=== PATIENT | female | born 1975 | race Caucasian/White ===

== ENCOUNTER 2024-02-18 19:15 | Inpatient (IN) | payer BC, MEDICAID, SELFPAY ==
[2024-02-18 19:30] VITALS: BP 143/95; PULSE 88; RESP 16; TEMP 36.9; O2SAT 98
[2024-02-18 19:42] VITALS: BMI 21.4
[2024-02-18] MEDS: lamoTRIgine 100 MG TABLET 200 MG PO (22:15)
[2024-02-18] MEDS: Perphenazine 8 MG TABLET PO (22:15)
[2024-02-18 22:16] VITALS: BP 143/90; PULSE 98
[2024-02-18] MEDS: Propranolol HCL 10 MG TABLET PO (22:16)
--- NOTE | 2024-02-18 23:44 | PC.ADMIT ---
Teri Baptiste is a 48yo female, admitted to M3 unit from [facility] on a CV for treatment of bipolar, psychosis and paranoia. Her fiance called 911 for her due to Teri being decompensated and not sleeping at all for the pass 2-3 days. Per crisis assessment, Pt arrives in the ED at [facility] in a nearly catatonic state and primarily non-verbal. She keeps repeating 9 years and will not elaborate on it. She reports seeing spirits and non meds compliant. Upon admission to the unit , she immediately signed a 3 day notice form. Patient was calm, but a bit irritable during the admission process. She states I am tired and will continue tomorrow, I just need my meds so that I can sleep tonight . Affect is flat and mood is depressed. Pt denies SI/HI/AH/VH. Pt read and signed notice of rights for CV form. She did not signed any release of information forms and did not fill my contacts form. Skin check done and V/S was stable. Safety tools and treatment plans initiated but yet to be signed. She took her meds before going to her room.
[2024-02-19 07:59] VITALS: BP 128/82; PULSE 80; RESP 16; TEMP 37.1; O2SAT 97
[2024-02-19] MEDS: lamoTRIgine 100 MG TABLET 200 MG PO ×2 (08:26→20:38)
[2024-02-19 08:27] VITALS: BP 128/82; PULSE 80
[2024-02-19] MEDS: Propranolol HCL 10 MG TABLET PO ×2 (08:27→16:06)
[2024-02-19] MEDS: Perphenazine 8 MG TABLET PO ×2 (08:28→20:38)
--- NOTE | 2024-02-19 08:56 | P.HPPS_ITS ---
HPI Date of Service: 02/19/24 Chief Complaint: Bipolar disorder HPI Narrative: per [facility] psych note, pt was BIBA to their ED after her fiancee jeanine called 911 due to her being decompensated and not sleeping at all for the past 2-3 days. she reportedly arrived in a catatonic state and was largely non-verbal, only saying 9 years to various staff. jeanine reported to staff that pt was experiencing severe insomnia and hallucinations. he reported she has a bipolar disorder Dx and has not slept for several days and connected it to her having stopped using cannabis, which she uses for insomnia, in the days prior. he reported he believed she had been compliant with her medications. on interview with MD on unit 02/18, pt is far more engageable than as described when at [facility]. she is lucid and able to have productive, cogent conversation. she is somewhat hyperverbal and mildly irritable, but otherwise largely normal in mental status. she acknowledges her bipolar disorder diagnosis and asks for sleeping pill, feeling that her present regimen is fine and if only she could sleep a little bit she would fine. pt present regimen is trilafon and lamictal. she is educated re the 3 evidence-based mood stabilizers, but she rejects any changes to her current regimen. she reports having been on lithium for several years until about a year ago, believing it isn't a safe medication, yet is unable to provide any reasons for her belief. states she has also been on VPA but it made her manic and feel terrible, and she refuses to take it. she doesn't believe she has had tegretol before, but rejects it out of hand. MD informs pt that the reason she is not sleeping well is because she is not on a mood stabilizer, and that if she were her sleeping problem would be ameliorated. she refuses to change regimen, and asks for sleeping pill. benzos are discussed, pt has been on ativan before and it was too addictive and too hard to come off of that she won't try that again. lower potency neuroleptics are discussed but pt does not like the side effect profile and dismisses the option. sedating anti-depressants are discussed, but, due to her lack of proper mood stabilizer, cannot be prescribed for concern of their propensity to induce javier. sedating antihistamines are reviewed, but their limitations for nightly use due to habituation make them not ideal. MD circles back around to low-dose thorazine, which is discussed again in elaborate detail, and pt ultimately agrees to take 25 mg at HS with another 25 mg available PRN. legal status reviewed, that pt is on a 12b and will likely be discharged saturday, when the 12b matures. Past Psychiatric History: hosps: about 10 SA: denies SIB: denies HIB: denies outpt: gets meds from [facility], whom she sees remotely and is out of an agency in [place]. therapy with cj, who is in private practice and whom she also sees via telehealth. Medical Evaluation Reviewed: Hospitalist Mynor Pending [facility] Medical History No pertinent past medical history Family History: denies Social History: lives with in [place], in a home they own. 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 has 2 kids in their 20s. Substance History: nicotine - 1 ppd alcohol - denies cannabis - had been using daily the past 2.5 months until about 2 weeks ago. Trauma History: reports childhood trauma associated with her mother, declines to say more Diagnostics Vital Signs (24Hr): Vital Signs - 24 hr 02/18/24 19:30 02/18/24 22:16 02/19/24 07:59 Temperature 98.4 F 98.8 F Pulse Rate 88 98 80 Respiratory Rate 16 16 Blood Pressure 143/95 H 143/90 H 128/82 Pulse Oximetry 98 97 Oxygen Delivery Method Room Air Room Air 02/19/24 08:27 Temperature Pulse Rate 80 Respiratory Rate Blood Pressure 128/82 Pulse Oximetry Oxygen Delivery Method BMI result Body Mass Index 21.4 Meds/Allergies Meds Home Medications ?Medication ?Instructions ?Recorded ?Confirmed ?Type deutetrabenazine 9 mg tablet 9 mg PO BID 02/18/24 02/18/24 History (Austedo) lamotrigine 200 mg tablet 200 mg PO BID 02/18/24 02/18/24 History perphenazine 8 mg tablet 8 mg PO BID 02/18/24 02/18/24 History propranolol 10 mg tablet 10 mg PO TID 02/18/24 02/18/24 History trospium 60 mg capsule,extended 60 mg PO DAILY 02/18/24 02/18/24 History release 24 hr Allergies Allergies Allergy/AdvReac Type Severity Reaction Status Date / Time Penicillins Allergy Anaphylaxis Verified 02/18/24 22:09 sulfate ion Allergy Anaphylaxis Verified 02/18/24 22:25 Mental Status Exam Mental Status Exam Narrative: adequately dressed, somewhat disheveled. cooperative. no PMA/PMR. speech incr in rate and amount. decr latency. nml loudness and tone. thoughts linear and illogical. affect constricted, hyper-intense, min-labile. mood a little bass and tired. denies SI/SIBI/HI/AVH. Assessment & Plan Assessment & Plan (1) Bipolar I disorder with mixed features: Status: Acute Code(s): F31.9 - Bipolar disorder, unspecified Plan pt declines changing from her outpt regimen. she does agree to add thorazine at HS for help with sleep, however. re-stabilize on medications, discharge to outpt care once stable. 12b up saturday. Patient educated on: diagnosis and medication risk/benefits Reason for continued inpatient stay Substantial Risk for: inability to function and rapid decompensation Statement Statement: I have reviewed the history and physical and performed a pertinent examination on my patient. No changes have occurred unless specified. If the History and Physical was not performed prior to admission, the Hospitalist's service will be consulted for completing the admission p hysical. Time Spent With Patient Time: Total time managing care of this patient today __75__ minutes.
--- NOTE | 2024-02-19 09:08 | P.CONHOSP_ITS ---
History of Present Illness Data of Consult Service Date: 02/19/24 Requesting physician: Yuval Bach Primary Care Provider: Unknown Physician HPI Reason for consult: medical h&p 48 year old female with history of bipolar disorder and who is a current 1PPD smoker admitted to adult psychiatry with consult placed to hospitalist service for medical H&P. THe patient reports she has not slept in 3 days but otherwise has no complaints. While at [facility], cbc, bmp, were reviewed and were wnl. She denies etoh use or drug use. Review of Systems 2 Review of Systems: General: No fevers, malaise, unintentional weight loss HEENT: No blurred vision, diplopia. No sore throat, nasal congestion, rhinorrhea, sinus pain, ear pain Cardiovascular: No chest pain, palpitations, or leg edema Respiratory: No shortness of breath, wheezing, cough GI: No abdominal pain, nausea, vomiting, diarrhea, constipation, melena, hematochezia : No dysuria, hematuria, increased urinary frequency, decreased urinary output MSK: No myalgia, back pain Neuro: No headaches, weakness, paresthesias Skin: No rashes or lesions [facility] Medical History No pertinent past medical history Social History Household Members: Spouse Housing: House Do you presently have visiting nurse or other home services: No Patient Tobacco Use Status: Current everyday Tobacco user Tobacco use type: Cigarette Smoked in Last 30 Days: Yes e-Cigarette/Vaping Use: Never Used Patient Interested in Nicotine Replacement: Yes Patient Given Instructions on How to Stop Smoking: No Second Hand Smoke Exposure: No Use of substances other than those prescribed or required for medical reasons: No Currently Displaying Signs/Symptoms of Drug Intoxication Withdrawal: No Any prior treatment program specific to substance use: No Have you been hit, kicked, punched, or otherwise hurt by someone within the past year? If so, by whom?: No Do you feel safe in your current relationship?: Yes Is there a partner from a previous relationship who is making you feel unsafe now?: No Are you made to feel afraid or neglected: No Advance Directives: No Advance Directives Information Provided: No Do you have a plan to hurt others: No Plan Recently lost weight without trying: No Eating poorly because of decreased appetite: No Nutrition Risks: No Nutritional Risk Patient : No : No Poor oral hygiene: No Meds Allergies Allergy/AdvReac Type Severity Reaction Status Date / Time Penicillins Allergy Anaphylaxis Verified 02/18/24 22:09 sulfate ion Allergy Anaphylaxis Verified 02/18/24 22:25 Active Medications: Current Medications Acetaminophen (Acetaminophen 325 Mg Tablet) 650 mg PO Q6H PRN PRN Reason: Headache/Pain Mild Scale (1-3) Al Hydroxide/Mg Hydroxide (Magnesium Hydrox/Alum Hydrox 30 Ml Oral.Susp) 30 ml PO Q6H PRN PRN Reason: Heartburn/Nausea Hydroxyzine HCl (Hydroxyzine Hcl 25 Mg Tablet) 25 mg PO Q6H PRN PRN Reason: Anxiety Lamotrigine (Lamotrigine 100 Mg Tablet) 200 mg PO BID [facility] Last Admin: 02/19/24 08:26 Dose: 200 mg Magnesium Hydroxide (Milk Of Magnesia 30 Ml Oral.Susp) 30 ml PO DAILY PRN PRN Reason: Constipation Nicotine (Nicotine 21 Mg Patch.Td24) 21 mg TRANSDERMA DAILY [facility] Nicotine Polacrilex (Nicotine Polacrilex 2 Mg Gum) 4 mg BUCCAL Q1H PRN PRN Reason: Nicotine Cravings Pt Own (Austedo 9 Mg ()) 9 mg PO BID [facility] Last Admin: 02/19/24 08:26 Dose: 9 mg Non-Formulary Medication (Trospium) 60 mg PO DAILY [facility] Perphenazine (Perphenazine 8 Mg Tablet) 8 mg PO BID [facility] Last Admin: 02/19/24 08:28 Dose: 8 mg Propranolol HCl (Propranolol Hcl 10 Mg Tablet) 10 mg PO TID [facility]; Protocol Last Admin: 02/19/24 08:27 Dose: 10 mg Trazodone HCl (Trazodone Hcl 50 Mg Tablet) 50 mg PO BEDTIME MRX1 PRN PRN Reason: Insomnia Home Medications ?Medication ?Instructions ?Recorded ?Confirmed ?Last Taken ?Type deutetrabenazine 9 mg tablet 9 mg PO BID 02/18/24 02/18/24 Unknown History (Austedo) lamotrigine 200 mg tablet 200 mg PO BID 02/18/24 02/18/24 Unknown History perphenazine 8 mg tablet 8 mg PO BID 02/18/24 02/18/24 Unknown History propranolol 10 mg tablet 10 mg PO TID 02/18/24 02/18/24 Unknown History trospium 60 mg capsule,extended 60 mg PO DAILY 02/18/24 02/18/24 Unknown History release 24 hr Physical Exam Vital Signs and Narrative: Vital Signs: Last Vital Signs Temp 98.8 F 02/19/24 07:59 Pulse 80 02/19/24 08:27 Resp 16 02/19/24 07:59 BP 128/82 02/19/24 08:27 Pulse Ox 97 02/19/24 07:59 O2 Del Method Room Air 02/19/24 07:59 BMI result Body Mass Index 21.4 Assessment and Plan (1) Routine medical exam: Status: Acute Plan 48 year old female with history of bipolar disorder and who is a current 1PPD smoker admitted to adult psychiatry with consult placed to hospitalist service for medical H&P. #Mood disorder/psychosis -plan per psychiatry #Cigarette smoker -cessation advised -declined nrt Thank you for allowing me to participate in this consult. Signing off at this time. Please do not hesitate to call for further questions or for any acute medical issues
[2024-02-19 16:06] VITALS: BP 132/81; PULSE 84
[2024-02-19 20:30] VITALS: BP 134/81; PULSE 77; RESP 16; TEMP 37.3; O2SAT 98
[2024-02-19] MEDS: chlorproMAZINE HCl 25 MG TABLET PO (20:38)
[2024-02-19] MEDS: hydrOXYzine HCL 50 MG TABLET PO (20:39)
[2024-02-19 21:30] VITALS: TEMP 37.1
[2024-02-19 23:26] VITALS: TEMP 37.1
[2024-02-20 07:00] VITALS: BMI 21.3
[2024-02-20 07:38] VITALS: BP 126/59; PULSE 82; RESP 16; TEMP 36.7; O2SAT 96
[2024-02-20] MEDS: Perphenazine 8 MG TABLET PO ×2 (08:42→20:50)
[2024-02-20] MEDS: lamoTRIgine 100 MG TABLET 200 MG PO ×2 (08:43→20:48)
--- NOTE | 2024-02-20 11:13 | P.DS_ITS ---
DS: Providers Provider Date of Service: 02/20/24 Date of admission: 02/18/24 19:15 Primary care physician: Unknown Physician Consults: 02/18/24 20:27 Consult to Hospitalist Routine Comment: Consulting Provider: Hospitalist Reason For Exam: transfer pt DS: Diagnosis Discharge Diagnosis (1) Bipolar I disorder with mixed features: Status: Acute DS: Medications Discharge Medications Home Medications: Home Medications ?Medication ?Instructions ?Recorded ?Confirmed deutetrabenazine 9 mg tablet 9 mg PO BID 02/18/24 02/18/24 (Austedo) lamotrigine 200 mg tablet 200 mg PO BID 02/18/24 02/18/24 perphenazine 8 mg tablet 8 mg PO BID 02/18/24 02/18/24 propranolol 10 mg tablet 10 mg PO TID 02/18/24 02/18/24 trospium 60 mg capsule,extended 60 mg PO DAILY 02/18/24 02/18/24 release 24 hr Previous Rx's ?Medication ?Instructions ?Recorded chlorpromazine 25 mg tablet 25 mg PO BEDTIME PRN insomnia 30 02/20/24 days #30 tabs Mental Status Exam Mental Status Exam Narrative: adequately dressed and groomed. cooperative. no PMA/PMR. speech incr in rate, nml amount, latency. nml loudness and tone. thoughts linear and illogical. affect constricted, normo-intense, non-labile. mood good. denies SI/SI BI/HI/AVH. DS: Summary Hospital Course Hospital Course: per 02/18 admission note: per [facility] psych note, pt was BIBA to their ED after her fiancee jeanine called 911 due to her being decompensated and not sleeping at all for the past 2-3 days. she reportedly arrived in a catatonic state and was largely non-verbal, only saying 9 years to various staff. jeanine reported to staff that pt was experiencing severe insomnia and hallucinations. he reported she has a bipolar disorder Dx and has not slept for several days and connected it to her having stopped using cannabis, which she uses for insomnia, in the days prior. he reported he believed she had been compliant with her medications. on interview with on unit 02/18, pt is far more engageable than as described when at [facility]. she is lucid and able to have productive, cogent conversation. she is somewhat hyperverbal and mildly irritable, but otherwise largely normal in mental status. she acknowledges her bipolar disorder diagnosis and asks for sleeping pill, feeling that her present regimen is fine and if only she could sleep a little bit she would fine. pt present regimen is trilafon and lamictal. she is educated re the 3 evidence-based mood stabilizers, but she rejects any changes to her current regimen. she reports having been on lithium for several years until about a year ago, believing it isn't a safe medication, yet is unable to provide any reasons for her belief. states she has also been on VPA but it made her manic and feel terrible, and she refuses to take it. she doesn't believe she has had tegretol before, but rejects it out of hand. informs pt that the reason she is not sleeping well is because she is not on a mood stabilizer, and that if she were her sleeping problem would be ameliorated. she refuses to change regimen, and asks for sleeping pill. benzos are discussed, pt has been on ativan before and it was too addictive and too hard to come off of that she won't try that again. lower potency neuroleptics are discussed but pt does not like the side effect profile and dismisses the option. sedating anti-depressants are discussed, but, due to her lack of proper mood stabilizer, cannot be prescribed for concern of their propensity to induce javier. sedating antihistamines are reviewed, but their limitations for nightly use due to habituation make them not ideal. circles back around to low-dose thorazine, which is discussed again in elaborate detail, and pt ultimately agrees to take 25 mg at HS with another 25 mg available PRN. legal status reviewed, that pt is on a 12b and will likely be discharged saturday, when the 12b matures. Past Psychiatric History: hosps: about 10 SA: denies SIB: denies HIB: denies outpt: gets meds from [facility], whom she sees remotely and is out of an agency in [place]. therapy with cj, who is in private practice and whom she also sees via telehealth. Medical Evaluation Reviewed: Hospitalist Mynor Pending [facility] Medical History No pertinent past medical history Family History: denies Social History: lives with BF in [place], in a home they own. 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 has 2 kids in their 20s. Substance History: nicotine - 1 ppd alcohol - denies cannabis - had been using daily the past 2.5 months until about 2 weeks ago. Trauma History: reports childhood trauma associated with her mother, declines to say more Plan pt declines changing from her outpt regimen. she does agree to add thorazine at HS for help with sleep, however. re-stabilize on medications, discharge to outpt care once stable. 12b up saturday. 02/19: safe, stable. 3-day up tomorrow. meds reviewed, reconciled, prescribed. 02/20: safe, stable. discharged upon expiry of 3-day notice as not committable. Time Spent with Patient Time attestation: Total time managing care of this patient today __35__ minutes. Discharge Plan Discharge Anticipated Discharge Date/Time: 02/21/24 11:30 Patient Disposition: Home, Self-Care Discharge Diagnosis: Bipolar I Disorder with Mixed Features Referrals: Cj (Therapy) [Other] - 03/03/24 Asmita (Psychiatry) [Other] - 02/27/24 Physician,Unknown J [Primary Care Provider] - 1 Week Discharge Medications: New chlorpromazine 25 mg Tablet 25 mg PO BEDTIME PRN (Reason: insomnia) 30 Days Qty: 30 0RF Rx Instructions: may take only 12.5 mg as indicated Continued lamotrigine 200 mg tablet 200 mg PO BID propranolol 10 mg tablet 10 mg PO TID perphenazine 8 mg tablet 8 mg PO BID trospium 60 mg capsule,extended release 24hr 60 mg PO DAILY [place] 9 mg tablet 9 mg PO BID Discharge Orders: Discharge Order (Routine); Ordered 02/21/24 Ordered By: Yuval Bach Diet: Advance to usual diet Activity on Discharge: As tolerated Stand Alone Forms: Patient Portal Discharge page, Community Support Print Language: Thai Care Plan Goals: remain safe and stable in the outpatient treatment setting Health Concerns: none Plan of Treatment: take medications as prescribed, attend appointments as scheduled Assessment: not at imminent risk of harm to self or others Discharge Date/Time: 02/21/24 14:02
[2024-02-20 14:37] VITALS: BP 132/80; PULSE 93
[2024-02-20] MEDS: Propranolol HCL 10 MG TABLET PO ×2 (14:37→20:58)
[2024-02-20 20:31] VITALS: BP 132/66; PULSE 72; RESP 18; TEMP 36.9; O2SAT 99
[2024-02-20] MEDS: Fluconazole 150 MG TABLET PO (20:46)
[2024-02-20] MEDS: chlorproMAZINE HCl 25 MG TABLET PO (20:49)
[2024-02-20 22:45] LABS: Appearance Urine Clear; Color Urine Yellow; Glucose Urine UA Negative (Negative); Leukocyte Esterase Urine Negative (Negative); Nitrite Urine Negative (Negative); PH 7.5 (5.0-9.0); Urine Blood Negative (Negative); Urine Ketones Negative (Negative); Urine Protein Negative (Neg-Trace)
[2024-02-20 22:50] LABS: Bacteria Urine None Seen (None Seen); Hyaline Casts Urine 0-2 /LPF (0-2); RBC Urine 0-2 /HPF (0-2); Squamous Epithelial Cell Urine 0-2 /HPF (0-2); WBC Urine 0-5 /HPF (0-5)
[2024-02-21 07:55] VITALS: BP 113/74; PULSE 78; RESP 16; TEMP 37; O2SAT 97
[2024-02-21] MEDS: Perphenazine 8 MG TABLET PO (08:21)
[2024-02-21] MEDS: lamoTRIgine 100 MG TABLET 200 MG PO (08:21)
[2024-02-21 11:00] VITALS: BP 123/73; PULSE 89
[2024-02-21 11:09] VITALS: BP 123/89; PULSE 89
[2024-02-21] MEDS: Propranolol HCL 10 MG TABLET PO (11:09)
== END 2024-02-21 14:02 | disposition home or self-care (01) | DRG 753 ==
PROVIDERS: Psychiatry & Neurology Psychiatry; Admitting Provider Psychiatry & Neurology Psychiatry; Visit Provider Psychiatry & Neurology Psychiatry
DX: F31.60 Bipolar disorder, current episode mixed, unspecified (principal); F17.210 Nicotine dependence, cigarettes, uncomplicated; Z71.6 Tobacco abuse counseling; Z79.899 Other long term (current) drug therapy
CPT/HCPCS: 81001

== ENCOUNTER → 2024-02-18 19:15 | Outpatient (BNV) | payer BC, MEDICAID, SELFPAY | PROVIDERS: Admitting Provider Psychiatry & Neurology Psychiatry; Visit Provider Psychiatry & Neurology Psychiatry | DX: F31.64 Bipolar disorder, current episode mixed, severe, with psychotic features (principal) | CPT/HCPCS: 90792; 99231; 99239 ==

== ENCOUNTER → 2024-02-18 19:15 | Outpatient (BNV) | payer BC, MEDICAID, SELFPAY | PROVIDERS: Admitting Provider Psychiatry & Neurology Psychiatry; Visit Provider Physician Assistant | DX: Z00.00 Encounter for general adult medical examination without abnormal findings (principal) | CPT/HCPCS: 99499 ==